=== PATIENT | female | born 1955 | race African-American/Black ===

== ENCOUNTER 2019-10-29 09:01 | Observation (INO) | payer OTHER, SELFPAY ==
[2019-10-29] VITALS (9 sets, daily range): BP systolic 91–127; BP diastolic 43–63; PULSE 76–92; RESP 16–24; TEMP 36.4–37.3; O2SAT 87–95
--- NOTE | ~2019-10-29 | CT_ITS ---
EXAMINATION: CT brain wo con DATE: 10/29/2019 12:58 INDICATION: Weakness TECHNIQUE: Computed tomography (CT) of the head was performed without intravenous contrast. Sagittal and coronal reconstructions were performed. The mA was adjusted according to patient size. Iterative reconstruction technique was employed. The dose-length product was 605.33 mGy-cm. COMPARISON: none FINDINGS: No acute intracranial hemorrhage, acute infarction or abnormal extra axial fluid collection. Ventricl es are normal and symmetric. There is moderate scattered white matter hypoattenuation consistent with chronic small vessel ischemic disease. Dystrophic calcifications at the bilateral basal ganglia. No mass/mass effect. Numerous lytic bone lesions throughout the skull, The largest occupying a signific ant portion of the clivus. A lesion in the anterior left frontal bone erodes through both the inner a nd outer tables of the calvarium as well as into the right frontal sinus. The orbits and mastoid air cells are normal. Mucus retention cyst in the left maxillary sinus. Additional lytic lesions eroding the cortices at the bilateral mandibular condyles. IMPRESSION: 1. No acute intracranial process. 2. Age related changes including moderate scattered white matter disease consistent with chronic smal l vessel ischemic disease. 3. Numerous lytic bone lesions concerning for malignancy with differential including multiple myeloma , metastatic disease and lymphoma. Reviewed, dictated and finalized at location A. IMPRESSION: 1. No acute intracranial process. 2. Age related changes including moderate scattered white matter disease consis tent with chronic small vessel ischemic disease. 3. Numerous lytic bone lesions concerning for malignancy with differential incl uding multiple myeloma, metastatic disease and lymphoma.
--- NOTE | ~2019-10-29 | XR_ITS ---
EXAMINATION: XR shoulder RT min 2V INDICATION: Right arm pain, history of myeloma TECHNIQUE: Three views of the right shoulder are submitted. COMPARISON: None FINDINGS: There is a minimally displaced surgical neck fracture of the right proximal humerus. There are innumerable lytic lesions involving the humerus, scapula, and right clavicle, consistent with his tory of multiple myeloma. IMPRESSION: 1. Minimally displaced surgical neck fracture of the right humerus. 2. Findings consistent with multiple myeloma. Reviewed, dictated and finalized at location A.
--- NOTE | 2019-10-29 09:24 | ED.GENADULT ---
HPI - General Adult General Chief complaint: Weakness Stated complaint: Weakness Time Seen by Provider: 10/29/19 09:04 Source: patient and family Mode of arrival: ambulatory Limitations: no limitations History of Present Illness HPI narrative: Patient is a 63-year-old female with a history of multiple myeloma following Dr. Najera who presents for evaluation of weakness. Patient reports she has been mostly bedbound over the past week. She has had decreased oral intake without nausea, vomiting or abdominal pain. She denies any specific pain, just states she feels very weak. She denies any numbness. Patient's states he has been unable to care for her, stating that she has just difficulty with all of her activities of daily living. Perhaps at this time, he believes home would not be the best location for her. Patient denies any urinary symptoms. No numbness. No headache. She reports her mouth feels dry. She denies any diarrhea. Related Data Home Medications Medication Instructions Recorded Confirmed amlodipine [Norvasc] 10 mg PO DAILY 07/02/19 07/25/19 metoprolol tartrate [Lopressor] 50 mg PO BID 07/02/19 07/25/19 oxycodone [Roxicodone] 5 mg PO Q4-6H 07/02/19 07/25/19 Allergies Allergy/AdvReac Type Severity Reaction Status Date / Time acetaminophen [From Tylenol] AdvReac Dizziness Verified 07/02/19 08:30 Review of Systems Review of Systems: Narrative: CONSTITUTIONAL: Denies fever, chills, or sweats. EYES: Denies visual changes ENT: Denies rhinorrhea, congestion, sore throat, or otalgia. CARDIOVASCULAR: Denies chest pain, palpitations, or edema. RESPIRATORY: Denies cough or dyspnea. GASTROINTESTINAL: Denies abdominal pain, nausea, vomiting, or diarrhea. GENITOURINARY: Denies dysuria or hematuria. SKIN: Denies rash or itching. MUSCULOSKELETAL: Denies new back pain, joint pain, or myalgia. NEUROLOGIC: Denies headache, numbness, reports diffuse weakness PMFSH Past Medical History Medical History Confusion Hypertension Multiple myeloma Surgical History Surgical History Cataract extraction status of left eye Family History Family History Father Malignant neoplasm of prostate Hypertension Mother Hypertension Sibling Drug overdose Other Unknown family medical history Social History Social History Social History: Her is her poa and she is a full code. She has no children. 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 Smoking status: Never smoker Second hand tobacco smoke exposure: Yes (sometimes family smokes) Alcohol intake: current Drinks per week: 1 Substance use: never Additional living arrangements comments: her Gender identity (if verbalized by the patient): Female Spiritual care concerns: No Agree to blood products: Yes Exam Narrative: Exam Narrative: GENERAL: Awake, alert, conversant HEAD: Normocephalic, atraumatic. EYES: PERRLA and EOMI. ENT: Nares clear, no rhinorrhea or epistaxis. Mucous membranes dry NECK: Supple. CHEST: No respiratory distress, breathing even and non labored HEART: Regular rate, sinus rhythm ABDOMEN:Non distended, non tender EXTREMITIES: Normal range of motion. No edema. SKIN: Warm, dry, no rash. NEURO:No focal deficits. Alert and oriented x3. Finger to nose intact bilaterally. EOMs intact without nystagmus. No facial droop/asymmetry noted bilaterally. Grimace intact. Intact sensation in face. Hearing intact bilaterally. Shoulder shrug intact. Strength 5/5 bilateral upper extremities. Strength 5/5 bilateral lower extremities. Reflexes 2+ patellar. Heel to christiansen intact bilaterally, somewhat slowed. Ambulatory exam deferred. Course Course Emergency Course: Patient presents to the emergency department for evaluation of di
--- NOTE | 2019-10-29 09:25 | ECG_ITS ---
Measurements Intervals [place] Rate: 83 P: 65 DE: 148 QRS: 56 QRSD: 84 T: 72 QT: 343 QTc: 404 Interpretive Statements SINUS RHYTHM BORDERLINE T WAVE ABNORMALITY- ANTERIOR LEADS BASELINE WANDER- I, II, AVR, AVL, AVF BORDERLINE ECG Electronically Signed On 10-29-2019 10:57:40 CDT by Jose Aguirre D.O.
[2019-10-29 09:51] LABS: Basophils Percent Auto 0.3 % (0.2-1.2); Eosinophils Percent Auto 0.4 % (0-4.4); Hematocrit 25.1 % (37.0-47.0); Hemoglobin 7.6 g/dL (12.0-15.0); Immature Granulocyte Absolute 0.16 K/mm3 (0.00-0.031); Immature Granulocyte Percent A 2.1 % (0-0.5); Lymphocytes Absolute Auto 1.15 K/mm3 (0.9-3.2); Mean Corpuscular HGB Conc 30.3 g/dl (32-36); Mean Corpuscular Hemoglobin 31.7 pg (26-34); Mean Corpuscular Volume 104.6 fl (80-100); Mean Platelet Volume 9.5 fl (7.4-10.4); Monocytes Absolute Auto 0.7 K/mm3 (0.1-0.6); Neutrophils Absolute Auto 5.6 K/mm3 (1.3-6.7); Neutrophils Percent Auto 73.2 % (45.5-73.1); Nucleated Red Blood Cells Absolute Auto 0.1 K/mm3 (0.0-0.012); Nucleated Red Blood Cells Perc 0.7 % (0.0-0.2); Platelet Count Result 321 k/mm3 (150-375); Red Cell Distribution Width 19.9 % (11.5-14.5); White Blood Count 7.7 K/mm3 (4.5-10.0)
[2019-10-29] MEDS: SODIUM CHLORIDE 0.9% IV 1,000 ML 999 ML (10:00)
[2019-10-29 10:08] LABS: Alanine Aminotransferase 7 U/L (4-35); Albumin Level 3.2 g/dL (3.5-5.1); Alkaline Phosphatase 97 U/L (38-126); Aspartate Amino Transferase 60 U/L (14-36); Bilirubin,Total 0.7 mg/dL (0.2-1.3); Blood Urea Nitrogen 25 mg/dL (7-17); Calcium 11.3 mg/dL (8.4-10.2); Carbon Dioxide 25 mmol/L (22-30); Chloride 105 mmol/L (98-107); Estimated Glomerular Filt Rate 29; Glucose 133 mg/dL (65-105); Sodium 136 mmol/L (137-145)
[2019-10-29 10:45] LABS: Add Urine Microscopic? YES; Appearance Urine Clear (Clear); Bacteria Urine Trace /hpf; Bilirubin Urine Negative (Negative); Blood Urine 3+ (Negative); Color Urine Yellow (Yellow); Glucose Urine UA Negative (Negative); Ketones Urine Negative (Negative); Leukocyte Esterase Ur Negative LEU/UL (Negative); Mucus Urine Rare /lpf; Nitrate Urine Negative (Negative); Protein Urine Negative (Negative); RBC Urine 0-2 /hpf (0-2); Specific Grav Ur 1.019 (1.001-1.035); Squamous Epithelial Cell Urine Rare /hpf (Few); Urobilinogen Urine Negative mg/dL (<2.0); WBC Urine 0-3 /hpf
--- NOTE | 2019-10-29 13:40 | ADMGEN ---
This patient, Queen Jean Claude Larson, was admitted to 2 Medical Room 253-01. Patient/family oriented to hospital policies and general routines including ID bracelet, bed and alarms, visiting hours, pain management, procedures, bathroom and other care routines, personal items, smoking policy, room service/diet, and visiting hours. Valuables list has been completed. Information on how to activate the Rapid Response Team has been discussed. Patient/Family are encouraged to report perceived risks to care and to ask questions if they do not understand what they are told or what they should do.
--- NOTE | 2019-10-29 15:08 | PCPTNOTE ---
pt refused PT evauation; stated she had shoulder pain and could not get out of bed; discussed with her that weakness and need to get OOB; she continued to refuse; discussed pt with MADDIE Dickey and SONDRA Arnett
--- NOTE | 2019-10-29 16:53 | PM.IMHP ---
H&P: HPI History of Present Illness Chief complaint: dehydration,shelia Narrative: Queen Jean Claude Larson is a 63 year old female who was diagnosed with multiple myeloma around 2015. She tried chemotherapy and developed peripheral neuropathy from. Both her hands and feet remain a bit numb since then. Q other than steroids she has taken no further chemotherapy since then. Recently she began to have severe pain left humerus deep aching pain. Found to have pathological fracture. Completed radiation therapy on September 27 with relief of pain. However the last 2 weeks she has become more weak. She hardly gets out of bed. Her has to help her out of bed. She requires help with all ADLs including set up for feeding and assistance to the bathroom. She is continent of bowel and bladder as long as she can get to the bathroom on time. That has become more of an effort. She has decreased appetite and weight loss. No nausea or vomiting. Over the past 1 week her right shoulder has begun hurting. Is and also a deep aching pain. Worse with any movement of the arm. This began about a week ago after her was out of the house for 6-7 hours and she was lying on the right side for that entire time. She denied any increased numbness in the right arm. No trouble with speech or swallowing. No visual or auditory symptoms. No dizziness or vertigo. She denied abdominal pain nausea or vomiting. She denied constipation or diarrhea. She denied fevers chills sweats cough congestion recent travel exposure to ill individuals. She notes that medications tendon discrete with her. She cannot take Tylenol as it makes her loopy. She usually takes 1/2 of a baby aspirin when she has pain. Hx was obtained from review of records, face to face interview with patient, and phone interview with house. Review of Systems Review of Systems: All systems reviewed & are unremarkable except as noted in HPI and below PMFSH Surgical History Surgical History Cataract extraction status of left eye Family History Family History (Updated 10/29/19 @ 17:27 by Alcon Gordillo MD) Father Malignant neoplasm of prostate Hypertension Alcoholism Mother Hypertension Cerebrovascular accident Sibling Drug overdose Other Unknown family medical history Social History Social History (Updated 10/29/19 @ 17:30 by Alcon Gordillo MD) Social History: Spouse is POA. No children. 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 Smoking status: Never smoker Second hand tobacco smoke exposure: Yes (sometimes family smokes) Alcohol intake: current Drinks per week: 1 Alcohol use details: Wine or gin Substance use: never Substance use type: does not use Other substance usage details: Tried marijuana as young adult without adverse effects. Living arrangements: with family Additional living arrangements comments: spouse Gender identity (if verbalized by the patient): Female Spiritual care concerns: No Agree to blood products: Yes Meds Home Medications and Allergies Home Medications Medication Instructions Recorded Confirmed Type amlodipine [Norvasc] 10 mg PO DAILY 07/02/19 10/29/19 History metoprolol tartrate [Lopressor] 50 mg PO BID 07/02/19 10/29/19 History bisacodyl [Dulcolax (bisacodyl)] 10 mg NC DAILY PRN 10/29/19 10/29/19 History simethicone 125 mg PO DAILY PRN 10/29/19 10/29/19 History Allergies Allergy/AdvReac Type Severity Reaction Status Date / Time acetaminophen [From Tylenol] AdvReac Dizziness Verified 07/02/19 08:30 Vital Signs Vital Signs - 24 hr 10/29/19 09:05 10/29/19 10:00 10/29/19 11:00 Temperature 99.1 F Pulse Rate 92 81 76 Respiratory Rate 16 20 24 H Blood Pressure 91/54 L 127/63 107/60 Pulse Oximetry 95 92 90 10/29/19 12:00 10/29/19 13:20 Temperature Pulse Rate 76 76 Respiratory Rate 18 16 Blood Pressure 103/55 L 107/60
[2019-10-29] MEDS: SODIUM CHLORIDE 0.9% IV 1,000 ML 70 ML IV CONT (17:31)
--- NOTE | 2019-10-29 17:37 | PM.CNNEP ---
Assessment and Plan Additional Plan 1. The patient has chronic kidney disease. Her GFR runs in the low 30s and so she has stage III CKD. Most likely this is due to hypertension. There is a small likelihood of myeloma kidney but since her disease is not progressive I doubt that this is the case. 2. The patient has acute kidney injury. This is most likely due to dehydration. She has not been eating and drinking very well at all. Her urinalysis shows some blood. This has been present before. She should probably see a urologist. We will get urine electrolytes and eosinophils. We will check an ultrasound of the kidneys as well. She is getting IV fluids. 3. The patient has multiple myeloma. She is getting radiation therapy for this. It does not look like she is on any oral medications for this. 4. She has hypertension. Her blood pressure is a little bit on the low side. Her amlodipine and metoprolol are on hold. 5. She has anemia. We will check iron levels, reticulocyte count, and give her some Epogen. 6. She has hypercalcemia. It is likely that she has somewhat high calcium turn over due to her myeloma. At the end of last hospital stay, her calcium levels were okay. I believe her calcium level is high now due to the dehydration. We will see how these levels do just with her hydration. History of Present Illness Reason for Consult Consult date: 10/29/19 Chief Complaint Chief complaint: dehydration,shelia History of Present Illness Narrative: Ms Larson is a very pleasant lady who has multiple medical problems including chronic kidney disease with a baseline creatinine of around 1.5. She also has active multiple myeloma and is getting therapy by . It is unclear exactly what therapy she is getting, however. She also has hypertension. She is a poor historian. Last June she came in the hospital with weakness and had a creatinine of over 5.0. The differential diagnosis mainly included dehydration or myeloma kidney. However as the weeks went on while she was in the hospital, her creatinine improved without any chemotherapy and she was discharged with a creatinine of around 1.4. There are no old labs in between that value on July 14 and this value today of 2.1. She says that for about the last week she has been tired and staying in bed. She meant since that she laid on 1 side for 7 hours. She says she has been eating but not great. She just nipple that her dinner tonight. She has not been drinking very much fluid either. She has been making some urine. She denies any chest pain, shortness of breath, cough, fever, skin rash. She is not taking any [id number] medications. Review of Systems Constitutional: Constitutional: Reports no additional constitutional complaints Eyes: Eyes: Reports no additional eye complaints ENT: Reports system reviewed and no additional complaints, except as documented Cardiovascular: Cardiovascular: Reports no additional cardiovascular complaints Respiratory: Respiratory: Reports no additional respiratory complaints Gastrointestinal: Gastrointestinal: Reports no additional gastrointestinal complaints Genitourinary: Genitourinary: Reports no additional female genitourinary complaints Musculoskeletal: Musculoskeletal: Reports no additional musculoskeletal complaints Integumentary/Breasts: Skin/Breast: Reports system reviewed and no additional complaints, except as docu Neurologic: Reports system reviewed and no additional complaints, except as documented Psychiatric: Psychiatric: Reports no additional psychiatric complaints PMFSH Past Medical History Medical History Hypertension Multiple myeloma Surgical History Surgical History Cataract extraction status of left eye Family History Family History
[2019-10-29] MEDS: EPOETIN ALFA 20,000 UNITS/ML VIAL 20000 UNITS SUB-Q (18:47)
[2019-10-29] MEDS: DEXAMETHASONE SOD PHOS INJ 4 MG/ML VIAL IV PUSH (19:27)
[2019-10-29 20:47] LABS: Parathyroid Intact 4.7 pg/mL (7.5-53.5)
[2019-10-29 21:03] LABS: Iron 66 ug/dL (37-170)
[2019-10-29 21:12] LABS: Percent Iron Saturation 36 % (20-50)
[2019-10-30 05:55] VITALS: BP 111/52; PULSE 95; RESP 20; TEMP 36.9; O2SAT 92
--- NOTE | 2019-10-30 07:42 | PM.PNNEP ---
Progress Note: A&P Assessment and Plan (1) CKD (chronic kidney disease): Qualifiers: Chronic kidney disease stage: stage 3 (moderate) Qualified Code(s): N18.3 - Chronic kidney disease, stage 3 (moderate) Code(s): N18.9 - Chronic kidney disease, unspecified Status: Acute Assessment and Plan: The patient has chronic kidney disease. Her GFR runs in the low 30s and so she has stage III CKD. Most likely this is due to hypertension. There is a small likelihood of myeloma kidney but since her disease is not progressive I doubt that this is the case. (2) SUPA (acute kidney injury): Code(s): N17.9 - Acute kidney failure, unspecified Status: Acute Assessment and Plan: Patient is making some urine. Her labs are pending today. (3) Multiple myeloma: Qualifiers: Multiple myeloma remission status: not in remission Qualified Code(s): C90.00 - Multiple myeloma not having achieved remission Code(s): C90.00 - Multiple myeloma not having achieved remission Status: Chronic Assessment and Plan: She is being managed by Dr. Najera as an outpatient. (4) Hypertension: Qualifiers: Hypertension type: essential hypertension Qualified Code(s): I10 - Essential (primary) hypertension Code(s): I10 - Essential (primary) hypertension Status: Chronic Assessment and Plan: Her blood pressure is well controlled (5) Anemia: Qualifiers: Anemia type: other cause Other causes of anemia: other cause, not classified Qualified Code(s): D64.89 - Other specified anemias Code(s): D64.9 - Anemia, unspecified Status: Acute Assessment and Plan: Her hemoglobin is low. She is on EPO. Retake and iron levels as well as B12 and folate are all pending (6) Hypercalcemia: Code(s): E83.52 - Hypercalcemia Status: Acute Assessment and Plan: Today's calcium level is pending. Probably due to the myeloma plus dehydration. It may improve with hydration alone. Consider a bisphosphonate for this when the renal function recover Subjective Date/time seen: 10/30/19 07:42 Interval history: is feeling okay today. Not quite as weak as yesterday. She ate some supper yesterday. She does not feel like eating breakfast. She never does. Review of Systems Cardiovascular: Cardiovascular: Reports no additional cardiovascular complaints Respiratory: Respiratory: Reports no additional respiratory complaints Gastrointestinal: Gastrointestinal: Reports no additional gastrointestinal complaints Genitourinary: Genitourinary: Reports no additional female genitourinary complaints Exam Narrative: Exam Narrative: Well developed well-nourished in no acute distress Lungs clear Heart regular without rub Abdomen bowel sounds positive soft nontender Extremities no edema Skin no rash Objective Data Vital Signs Vital Signs: Vital Signs - 24 hr 10/29/19 09:05 10/29/19 10:00 10/29/19 11:00 Temperature 37.3 C Pulse Rate 92 81 76 Respiratory Rate 16 20 24 H Blood Pressure 91/54 L 127/63 107/60 Pulse Oximetry 95 92 90 10/29/19 12:00 10/29/19 13:20 10/29/19 14:00 Temperature 36.6 C Pulse Rate 76 76 81 Respiratory Rate 18 16 16 Blood Pressure 103/55 L 107/60 93/43 L Pulse Oximetry 92 92 91 10/29/19 20:14 10/29/19 20:58 10/29/19 22:00 Temperature 36.4 C Pulse Rate 82 Respiratory Rate 20 Blood Pressure 101/49 L Pulse Oximetry 87 L 92 93 10/30/19 05:55 Temperature 36.9 C Pulse Rate 95 Respiratory Rate 20 Blood Pressure 111/52 L Pulse Oximetry 92 Intake/Output Intake/Output: Intake & Output 10/27/19 10/28/19 10/29/19 10/30/19 23:59 23:59 23:59 23:59 Intake Total 1320 520 Output Total 100 Balance 1320 420 Meds/Results Medications: Active Medications Generic Name Dose Route Start Last Admin Trade Name Freq PRN Reason Stop Dose Admin Amlodipine Be
[2019-10-30] MEDS: DEXAMETHASONE 4 MG TABLET PO (07:54)
[2019-10-30 08:10] LABS: Hematocrit 23.2 % (37.0-47.0); Immature Granulocyte Absolute 0.11 K/mm3 (0.00-0.031); Immature Granulocyte Percent A 1.5 % (0-0.5); Immature Reticulocyte Fraction 36.6 % (3.0-15.9); Lymphocytes Absolute Auto 0.76 K/mm3 (0.9-3.2); Lymphocytes Percent Auto 10.5 % (18.3-44.2); Mean Corpuscular HGB Conc 29.7 g/dl (32-36); Mean Corpuscular Hemoglobin 31.2 pg (26-34); Mean Platelet Volume 9.4 fl (7.4-10.4); Monocytes Absolute Auto 0.3 K/mm3 (0.1-0.6); Monocytes Percent Auto 3.4 % (2.6-8.5); Neutrophils Absolute Auto 6.1 K/mm3 (1.3-6.7); Neutrophils Percent Auto 84.6 % (45.5-73.1); Nucleated Red Blood Cells Perc 0.4 % (0.0-0.2); Platelet Count Result 283 k/mm3 (150-375); Red Blood Count 2.21 M/mm3 (4.2-5.4); Red Cell Distribution Width 19.7 % (11.5-14.5); Reticulocyte Hemoglobin Conten 33.9 pg (28.2-35.7); Reticulocyte Percent 4.43 % (0.7-4.3); White Blood Count 7.3 K/mm3 (4.5-10.0)
[2019-10-30 08:17] LABS: Blood Urea Nitrogen 29 mg/dL (7-17); Calcium 10.1 mg/dL (8.4-10.2); Carbon Dioxide 20 mmol/L (22-30); Chloride 108 mmol/L (98-107); Estimated Glomerular Filt Rate 29; Glucose 129 mg/dL (65-105); Phosphorus 4.2 mg/dL (2.5-4.5); Potassium 4.5 mmol/L (3.4-5.0); Sodium 133 mmol/L (137-145)
[2019-10-30 08:42] LABS: Hemoglobin 6.9 g/dL (12.0-15.0); Hypochromasia 1+ (NORMAL); Platelet Estimate Adequate (Adequate)
[2019-10-30 08:43] LABS: Macrocytosis 2+ (NORMAL)
[2019-10-30 08:46] LABS: Iron 69 ug/dL (37-170)
[2019-10-30 09:00] LABS: Parathyroid Intact 4.7 pg/mL (7.5-53.5)
[2019-10-30 09:27] LABS: Percent Iron Saturation 39 % (20-50)
--- NOTE | 2019-10-30 11:29 | PCPTNOTE ---
Physical therapy attempted to evaluate patient this morning, however patient consistently refused to participate in therapy evaluation despite therapist's max encouragement and education of importance of improving functional mobility etc. Patient reported that she is unable to move and is not interested in therapy at this time. Therapist spoke with patient's RN and therapy will re-attempt tomorrow and will discharge the patient from therapy services if the patient continues to refuse. Geetha Bynum, PT, DPT
[2019-10-30 13:37] VITALS: O2SAT 92
[2019-10-30 14:00] VITALS: BP 122/66; PULSE 103; RESP 18; TEMP 36.1; O2SAT 96
--- NOTE | 2019-10-30 15:33 | P.PNIM_ITS ---
Progress Note: A&P Assessment and Plan (1) Acute dehydration: Code(s): E86.0 - Dehydration Status: Acute Assessment and Plan: * Likely due to poor oral intake caused by increased pain and immobility and progression of her underlying multiple myeloma * IV fluid continue * Monitor labs and clinical response (2) SUPA (acute kidney injury): Code(s): N17.9 - Acute kidney failure, unspecified Status: Acute Assessment and Plan: * Likely due to underlying multiple myeloma and dehydration due to poor oral intake * Monitor renal function with hydration * Creatinine still 2.1 today (3) Multiple myeloma: Qualifiers: Multiple myeloma remission status: not in remission Qualified Code(s): C90.00 - Multiple myeloma not having achieved remission Code(s): C90.00 - Multiple myeloma not having achieved remission Status: Chronic Assessment and Plan: * Diagnosed in 2005 * She has done quite well with minimal intervention * At this point because of increased pain, decreased appetite, and decreased functional capacity she wishes to pursue palliative care * Male with hospice this a.m. and will proceed * Awaiting placement in a correction with hospice (4) Anemia: Qualifiers: Anemia type: other cause Other causes of anemia: other cause, not classified Qualified Code(s): D64.89 - Other specified anemias Code(s): D64.9 - Anemia, unspecified Status: Acute Assessment and Plan: * Likely due to her underlying multiple myeloma and chronic kidney disease. * Creatinine is 6.9 today but will hold on transfusion with the chronicity and the fact she is now entering hospice (5) Hypertension: Qualifiers: Hypertension type: essential hypertension Qualified Code(s): I10 - Essential (primary) hypertension Code(s): I10 - Essential (primary) hypertension Status: Chronic Assessment and Plan: * Held metoprolol and amlodipine initially due to hypotension. BP rebounding slightly so will restart metoprolol and continue to hold amlodipine (6) Hypercalcemia: Code(s): E83.52 - Hypercalcemia Status: Acute Assessment and Plan: * May be elevated at this point due to dehydration * And decreased to 10.1 with hydration (7) Right shoulder pain: Qualifiers: Chronicity: acute Qualified Code(s): M25.511 - Pain in right shoulder Code(s): M25.511 - Pain in right shoulder Status: Acute Assessment and Plan: * X-ray right shoulder fracture probable pathologic * Oxycodone 2.5 mg p.r.n. * If metastatic lesion is present then, in addition to steroids and narcotics, zoledronic acid 4 mg IV may mitigate symptoms if versus (8) CKD (chronic kidney disease): Qualifiers: Chronic kidney disease stage: stage 3 (moderate) Qualified Code(s): N18.3 - Chronic kidney disease, stage 3 (moderate) Code(s): N18.9 - Chronic kidney disease, unspecified Status: Acute Assessment and Plan: * Baseline creatinine was 1.4 on July 14, 2019, now acute on chronic kidney disease Subjective Date/time seen: 10/30/19 15:33 Interval history: Date of visit 10/29. is feeling okay today other than neuropathy type symptoms and pain in her right shoulder. Not quite as weak as yesterday. She is eating better slowly. Did not work with therapy today and discussing continued care with hospice Exam Narrative: Exam Narrative: Blood pressure 22/66
--- NOTE | 2019-10-30 15:33 | PM.IMPN ---
Progress Note: A&P Assessment and Plan (1) Acute dehydration: Code(s): E86.0 - Dehydration Status: Acute Assessment and Plan: Likely due to poor oral intake caused by increased pain and immobility and progression of her underlying multiple myeloma IV fluid continue Monitor labs and clinical response (2) SUPA (acute kidney injury): Code(s): N17.9 - Acute kidney failure, unspecified Status: Acute Assessment and Plan: Likely due to underlying multiple myeloma and dehydration due to poor oral intake Monitor renal function with hydration Creatinine still 2.1 today (3) Multiple myeloma: Qualifiers: Multiple myeloma remission status: not in remission Qualified Code(s): C90.00 - Multiple myeloma not having achieved remission Code(s): C90.00 - Multiple myeloma not having achieved remission Status: Chronic Assessment and Plan: Diagnosed in 2005 She has done quite well with minimal intervention At this point because of increased pain, decreased appetite, and decreased functional capacity she wishes to pursue palliative care Male with hospice this a.m. and will proceed Awaiting placement in a half-way with hospice (4) Anemia: Qualifiers: Anemia type: other cause Other causes of anemia: other cause, not classified Qualified Code(s): D64.89 - Other specified anemias Code(s): D64.9 - Anemia, unspecified Status: Acute Assessment and Plan: Likely due to her underlying multiple myeloma and chronic kidney disease. Creatinine is 6.9 today but will hold on transfusion with the chronicity and the fact she is now entering hospice (5) Hypertension: Qualifiers: Hypertension type: essential hypertension Qualified Code(s): I10 - Essential (primary) hypertension Code(s): I10 - Essential (primary) hypertension Status: Chronic Assessment and Plan: Held metoprolol and amlodipine initially due to hypotension. BP rebounding slightly so will restart metoprolol and continue to hold amlodipine (6) Hypercalcemia: Code(s): E83.52 - Hypercalcemia Status: Acute Assessment and Plan: May be elevated at this point due to dehydration And decreased to 10.1 with hydration (7) Right shoulder pain: Qualifiers: Chronicity: acute Qualified Code(s): M25.511 - Pain in right shoulder Code(s): M25.511 - Pain in right shoulder Status: Acute Assessment and Plan: X-ray right shoulder fracture probable pathologic Oxycodone 2.5 mg p.r.n. If metastatic lesion is present then, in addition to steroids and narcotics, zoledronic acid 4 mg IV may mitigate symptoms if versus (8) CKD (chronic kidney disease): Qualifiers: Chronic kidney disease stage: stage 3 (moderate) Qualified Code(s): N18.3 - Chronic kidney disease, stage 3 (moderate) Code(s): N18.9 - Chronic kidney disease, unspecified Status: Acute Assessment and Plan: Baseline creatinine was 1.4 on July 14, 2019, now acute on chronic kidney disease Subjective Date/time seen: 10/30/19 15:33 Interval history: Date of visit 10/29. is feeling okay today other than neuropathy type symptoms and pain in her right shoulder. Not quite as weak as yesterday. She is eating better slowly. Did not work with therapy today and discussing continued care with hospice Exam Narrative: Exam Narrative: Blood pressure 22/66 pulse is 100 saturating 6% 1-2 L HEENT: , PERRL, sclerae nonicteric, NECK: No JVD, adenopathy, or thyromegaly CHEST: Clear to auscultation. Normal effort. HEART: NL S1/S2, regular, no murmur ABDOMEN: BS+, soft, nontender, no mass, EXTREMITIES: No , edema, or clubbing NEUROLOGIC: CN intact with no acute focal changes MUSCULOSKELETAL:. Right shoulder tender to palpation with decreased ROM due to pain and weakness PSYCH: Alert. Oriented to person, place, an
[2019-10-30] MEDS: SODIUM CHLORIDE 0.9% IV 1,000 ML 70 ML IV CONT (16:50)
[2019-10-30] MEDS: BISACODYL 10 MG SUPPOSITORY RECTAL (16:51)
[2019-10-30 17:34] VITALS: BMI 25.0
--- NOTE | 2019-10-30 20:06 | CONS_ITS ---
DATE OF CONSULTATION: 10/30/2019 REASON FOR CONSULTATION: Multiple myeloma. HISTORY OF PRESENTING ILLNESS: This is a 63-year-old female who is a poor historian and has a history of multiple myeloma diagnosed in 2015 and was treated by Dr. Trejo. She received chemotherapy and that was subsequently discontinued due to development of peripheral neuropathy. She was seen by back in June 2019 for multiple myeloma. She did not keep followup appointment with our office. She was also seen by Dr. Brenda Najera for palliative radiation therapy to the left shoulder, which she completed in August 2019. The patient now came into the hospital with development of acute renal failure and profound anemia. She has been complaining of right shoulder pain. Complained of tiredness and fatigue. Denies any abdominal pain, nausea and vomiting. REVIEW OF SYSTEMS: 12-point review of system was reviewed and as per HPI, otherwise negative. PAST MEDICAL HISTORY: Multiple myeloma diagnosed in 1998, status post radiation therapy treatment completed in August 2019, hypertension. PAST SURGICAL HISTORY: Left eye cataract surgery. FAMILY HISTORY: Father had prostate cancer. Mother had stroke. SOCIAL HISTORY: Denies any history of smoking, drinks weekly. HOME MEDICATIONS: Reviewed. ALLERGIES: REVIEWED. PHYSICAL EXAMINATION: GENERAL: This patient is a well-developed, well-nourished, female, no apparent distress. VITAL SIGNS: Per nursing note. HEENT: Normocephalic, atraumatic. Clear oropharynx. LUNGS: Clear to auscultation bilaterally. CARDIOVASCULAR: Regular rate and rhythm. No murmurs. ABDOMEN: Soft, nontender, nondistended. Bowel sounds are positive in all 4 quadrants. No hepatosplenomegaly. EXTREMITIES: No edema. NEUROLOGIC: Exam grossly intact. LABORATORY DATA: WBC 7.3, hemoglobin 6.9, MCV 105, platelets 283,000, 1.5% immature granulocyte, 85% neutrophils, lymphocytes 10.5%. Creatinine 2.1, iron 69, iron saturation 39%, ferritin 270, total bilirubin 0.7. Vitamin B12 level is pending. ASSESSMENT AND PLAN: 1. Multiple myeloma. The patient is a poor historian. According to the chart review, she was diagnosed in 2015 and received treatment [address] Dr[address] Trejo. Treatment was discontinued due to development of peripheral neuropathy. According to her, her last treatment was more than a year ago. She also received radiation therapy treatment by Dr. Najera to the left proximal humerus and completed on August 20, 2019. Looks like her myeloma has not been managed recently. Her anemia could very well be secondary to multiple myeloma. Iron studies came back normal. B12 is pending. She could also have anemia of chronic kidney disease secondary to multiple myeloma. At this time, I will order serum protein electrophoresis with immunofixation studies. I will check serum free light chain studies and quantitative immunoglobulins. We would like to see her in the office after review of her previous myeloma therapy treatment. I would also suggest starting Procrit injection for her anemia of chronic kidney disease. 2. Chronic kidney, stage 3, disease. Dr. Noble is following the patient. I would like to thank you for allowing us to see this patient in consultation. MACIEL ESPINOZA M.D. DERMATOLOGY NURSE PRACTITIONER DERMATOLOGY NURSE PRACTITIONER D I MT: [place]
[2019-10-30] MEDS: SIMETHICONE 125 MG CHEW TAB PO (20:38)
[2019-10-30 21:09] VITALS: O2SAT 93
[2019-10-30 22:00] VITALS: BP 116/55; PULSE 82; RESP 20; TEMP 36.6; O2SAT 91
[2019-10-31] VITALS (7 sets, daily range): BP systolic 113–130; BP diastolic 50–70; PULSE 88–125; RESP 18–22; TEMP 36.2–36.7; O2SAT 90–92
[2019-10-31] MEDS: SIMETHICONE 125 MG CHEW TAB PO ×2 (04:54→17:35)
[2019-10-31 05:47] LABS: IFOB Positive Control Positive; Immunochemical Fecal Occult Bl Negative (N)
[2019-10-31] MEDS: SODIUM CHLORIDE 0.9% IV 1,000 ML 70 ML IV CONT (06:43)
[2019-10-31 07:29] LABS: Blood Urea Nitrogen 26 mg/dL (7-17); Calcium 9.6 mg/dL (8.4-10.2); Carbon Dioxide 21 mmol/L (22-30); Chloride 108 mmol/L (98-107); Estimated CRCL calculation 22 ml/min; Estimated Glomerular Filt Rate 34; Glucose 119 mg/dL (65-105); Phosphorus 3.4 mg/dL (2.5-4.5); Sodium 134 mmol/L (137-145)
--- NOTE | 2019-10-31 08:14 | PCPTNOTE ---
has refused PT x 2 and now has been placed on hospice. Will d/c from PT at this time.
[2019-10-31] MEDS: DEXAMETHASONE 4 MG TABLET PO (08:15)
--- NOTE | 2019-10-31 14:31 | PM.PNNEP ---
Progress Note: A&P Assessment and Plan (1) CKD (chronic kidney disease): Qualifiers: Chronic kidney disease stage: stage 3 (moderate) Qualified Code(s): N18.3 - Chronic kidney disease, stage 3 (moderate) Code(s): N18.9 - Chronic kidney disease, unspecified Status: Acute Assessment and Plan: The patient has chronic kidney disease. Her GFR runs in the low 30s and so she has stage III CKD. Most likely this is due to hypertension. (2) SUPA (acute kidney injury): Code(s): N17.9 - Acute kidney failure, unspecified Status: Acute Assessment and Plan: Patient is making some urine. Creatinine is stable but above her baseline. Continue IV fluids for now. (3) Multiple myeloma: Qualifiers: Multiple myeloma remission status: not in remission Qualified Code(s): C90.00 - Multiple myeloma not having achieved remission Code(s): C90.00 - Multiple myeloma not having achieved remission Status: Chronic Assessment and Plan: She is being managed by Dr. Najera as an outpatient. (4) Hypertension: Qualifiers: Hypertension type: essential hypertension Qualified Code(s): I10 - Essential (primary) hypertension Code(s): I10 - Essential (primary) hypertension Status: Chronic Assessment and Plan: Her blood pressure is well controlled (5) Anemia: Qualifiers: Anemia type: other cause Other causes of anemia: other cause, not classified Qualified Code(s): D64.89 - Other specified anemias Code(s): D64.9 - Anemia, unspecified Status: Acute Assessment and Plan: Her hemoglobin is low. She is on EPO. Reticulocyte count is doing pretty well. Iron levels are normal. B12 and folate were canceled? (6) Hypercalcemia: Code(s): E83.52 - Hypercalcemia Status: Acute Assessment and Plan: Today's calcium level is better, in the normal range. Additional Plan Subjective Date/time seen: 10/31/19 14:31 Interval history: is feeling okay today. Never eats very much breakfast. Not really eating a whole lot anyway. Review of Systems Cardiovascular: Cardiovascular: Reports no additional cardiovascular complaints Respiratory: Respiratory: Reports no additional respiratory complaints Gastrointestinal: Gastrointestinal: Reports no additional gastrointestinal complaints Genitourinary: Genitourinary: Reports no additional female genitourinary complaints Exam Narrative: Exam Narrative: Well developed well-nourished in no acute distress Lungs clear bilaterally Heart regular without rub Abdomen bowel sounds positive soft nontender Extremities no edema Skin no rash or subcu nodules Objective Data Vital Signs Vital Signs: Vital Signs - 24 hr 10/30/19 21:09 10/30/19 22:00 10/31/19 05:54 Temperature 36.6 C 36.3 C L Pulse Rate 82 94 Respiratory Rate 20 18 Blood Pressure 116/55 L 113/50 L Pulse Oximetry 93 91 91 10/31/19 08:30 Temperature Pulse Rate Respiratory Rate Blood Pressure Pulse Oximetry 90 Intake/Output Intake/Output: Intake & Output 10/28/19 10/29/19 10/30/19 10/31/19 23:59 23:59 23:59 23:59 Intake Total 1320 1930 1240 Output Total 250 100 Balance 1320 1680 1140 Meds/Results Medications: Active Medications Generic Name Dose Route Start Last Admin Trade Name Freq PRN Reason Stop Dose Admin Amlodipine Besylate 10 mg 10/30/19 09:00 Norvasc PO DAILY NIC[facility] Bisacodyl 10 mg 10/29/19 16:53 10/30/19 16:51 Dulcolax Suppository RECTAL 10 mg DAILY PRN Administration Constipation Dexamethasone 4 mg 10/30/19 08:00 10/31/19 08:15 Dexamethasone Po PO 4 mg DAILY@0800 [facility] Administration Epoetin [place] 20,000 units 10/29/19 17:50 10/29/19 18:47 Epogen SUB-Q 20,000 units MOWEFR NICOLA Administration Sodium Chloride 1,000 mls @ 70 mls/hr 10/29/19 16:55 10/31/19 06:43 Normal Saline Iv
--- NOTE | 2019-10-31 14:39 | P.PNIM_ITS ---
Progress Note: A&P Assessment and Plan (1) Acute dehydration: Code(s): E86.0 - Dehydration Status: Acute Assessment and Plan: * Likely due to poor oral intake caused by increased pain and immobility and progression of her underlying multiple myeloma * IV fluid continue * Monitor labs and clinical response (2) SUPA (acute kidney injury): Code(s): N17.9 - Acute kidney failure, unspecified Status: Acute Assessment and Plan: * Likely due to underlying multiple myeloma and dehydration due to poor oral intake * Monitor renal function with hydration * Creatinine down to 1.8 today (3) Multiple myeloma: Qualifiers: Multiple myeloma remission status: not in remission Qualified Code(s): C90.00 - Multiple myeloma not having achieved remission Code(s): C90.00 - Multiple myeloma not having achieved remission Status: Chronic Assessment and Plan: * Diagnosed in 2005 * She has done quite well with minimal intervention * At this point because of increased pain, decreased appetite, and decreased functional capacity she wishes to pursue palliative care * Met with hospice 10/29. and will proceed * Awaiting placement in a shelter with hospice (4) Anemia: Qualifiers: Anemia type: other cause Other causes of anemia: other cause, not classified Qualified Code(s): D64.89 - Other specified anemias Code(s): D64.9 - Anemia, unspecified Status: Acute Assessment and Plan: * Likely due to her underlying multiple myeloma and chronic kidney disease. * Creatinine is 6.9 10/29 but will hold on transfusion with the chronicity and the fact she is now entering hospice (5) Hypertension: Qualifiers: Hypertension type: essential hypertension Qualified Code(s): I10 - Essential (primary) hypertension Code(s): I10 - Essential (primary) hypertension Status: Chronic Assessment and Plan: * Held metoprolol and amlodipine initially due to hypotension. BP rebounding slightly so restarted metoprolol 10/29 and continue to hold amlodipine (6) Hypercalcemia: Code(s): E83.52 - Hypercalcemia Status: Acute Assessment and Plan: * May be elevated at this point due to dehydration * And decreased to 9.6 with hydration (7) Right shoulder pain: Qualifiers: Chronicity: acute Qualified Code(s): M25.511 - Pain in right shoulder Code(s): M25.511 - Pain in right shoulder Status: Acute Assessment and Plan: * X-ray right shoulder fracture probable pathologic * Oxycodone 2.5 mg p.r.n. * If metastatic lesion is present then, in addition to steroids and narcotics, zoledronic acid 4 mg IV may mitigate symptoms if versus . Already had radiation therapy to that shoulder. * Due to the multiple lytic lesions secondary to the multiple myeloma she is at increased risk for recurrent fractures (8) CKD (chronic kidney disease): Qualifiers: Chronic kidney disease stage: stage 3 (moderate) Qualified Code(s): N18.3 - Chronic kidney disease, stage 3 (moderate) Code(s): N18.9 - Chronic kidney disease, unspecified Status: Acute Assessment and Plan: * Baseline creatinine was 1.4 on July 14, 2019, now acute on chronic kidney disease and creatinine down to 1.8 today Subjective Date/time seen: 10/31/19 14:39 Interval history: Date of visit 10/30. is feeling okay today other than neuropathy type symptoms and pain in her right shoulder that is chronic. Not
--- NOTE | 2019-10-31 14:39 | PM.IMPN ---
Progress Note: A&P Assessment and Plan (1) Acute dehydration: Code(s): E86.0 - Dehydration Status: Acute Assessment and Plan: Likely due to poor oral intake caused by increased pain and immobility and progression of her underlying multiple myeloma IV fluid continue Monitor labs and clinical response (2) SUPA (acute kidney injury): Code(s): N17.9 - Acute kidney failure, unspecified Status: Acute Assessment and Plan: Likely due to underlying multiple myeloma and dehydration due to poor oral intake Monitor renal function with hydration Creatinine down to 1.8 today (3) Multiple myeloma: Qualifiers: Multiple myeloma remission status: not in remission Qualified Code(s): C90.00 - Multiple myeloma not having achieved remission Code(s): C90.00 - Multiple myeloma not having achieved remission Status: Chronic Assessment and Plan: Diagnosed in 2005 She has done quite well with minimal intervention At this point because of increased pain, decreased appetite, and decreased functional capacity she wishes to pursue palliative care Met with hospice 10/29. and will proceed Awaiting placement in a halfway with hospice (4) Anemia: Qualifiers: Anemia type: other cause Other causes of anemia: other cause, not classified Qualified Code(s): D64.89 - Other specified anemias Code(s): D64.9 - Anemia, unspecified Status: Acute Assessment and Plan: Likely due to her underlying multiple myeloma and chronic kidney disease. Creatinine is 6.9 10/29 but will hold on transfusion with the chronicity and the fact she is now entering hospice (5) Hypertension: Qualifiers: Hypertension type: essential hypertension Qualified Code(s): I10 - Essential (primary) hypertension Code(s): I10 - Essential (primary) hypertension Status: Chronic Assessment and Plan: Held metoprolol and amlodipine initially due to hypotension. BP rebounding slightly so restarted metoprolol 10/29 and continue to hold amlodipine (6) Hypercalcemia: Code(s): E83.52 - Hypercalcemia Status: Acute Assessment and Plan: May be elevated at this point due to dehydration And decreased to 9.6 with hydration (7) Right shoulder pain: Qualifiers: Chronicity: acute Qualified Code(s): M25.511 - Pain in right shoulder Code(s): M25.511 - Pain in right shoulder Status: Acute Assessment and Plan: X-ray right shoulder fracture probable pathologic Oxycodone 2.5 mg p.r.n. If metastatic lesion is present then, in addition to steroids and narcotics, zoledronic acid 4 mg IV may mitigate symptoms if versus . Already had radiation therapy to that shoulder. Due to the multiple lytic lesions secondary to the multiple myeloma she is at increased risk for recurrent fractures (8) CKD (chronic kidney disease): Qualifiers: Chronic kidney disease stage: stage 3 (moderate) Qualified Code(s): N18.3 - Chronic kidney disease, stage 3 (moderate) Code(s): N18.9 - Chronic kidney disease, unspecified Status: Acute Assessment and Plan: Baseline creatinine was 1.4 on July 14, 2019, now acute on chronic kidney disease and creatinine down to 1.8 today Subjective Date/time seen: 10/31/19 14:39 Interval history: Date of visit 10/30. is feeling okay today other than neuropathy type symptoms and pain in her right shoulder that is chronic. Not quite as weak as yesterday. She is eating better slowly. Has decided to enter hospice and waiting on placement. Exam Narrative: Exam Narrative: Blood pressure 116/54 pulse is 82 saturating 91% 1 L HEENT: , PERRL, sclerae nonicteric, NECK: No JVD, adenopathy, or thyromegaly CHEST: Clear to auscultation. Normal effort. HEART: NL S1/S2, regular, no murmur ABDOMEN: BS+, soft, nontender, no mass, EXTREMITIES: No , edema, or clu
[2019-10-31] MEDS: METOPROLOL TARTRATE 50 MG TAB PO (17:33)
[2019-10-31] MEDS: EPOETIN ALFA 20,000 UNITS/ML VIAL 20000 UNITS SUB-Q (17:35)
[2019-11-01 06:00] VITALS: BP 123/56; PULSE 80; RESP 16; TEMP 36; O2SAT 91
[2019-11-01 08:21] VITALS: PULSE 118
[2019-11-01] MEDS: DEXAMETHASONE 4 MG TABLET PO (08:21)
[2019-11-01] MEDS: METOPROLOL TARTRATE 50 MG TAB PO (08:21)
[2019-11-01 08:25] LABS: Basophils Percent Auto 0.1 % (0.2-1.2); Hematocrit 24.6 % (37.0-47.0); Hemoglobin 7.3 g/dL (12.0-15.0); Immature Granulocyte Absolute 0.19 K/mm3 (0.00-0.031); Immature Granulocyte Percent A 2.2 % (0-0.5); Lymphocytes Absolute Auto 1.06 K/mm3 (0.9-3.2); Lymphocytes Percent Auto 12.3 % (18.3-44.2); Mean Corpuscular HGB Conc 29.7 g/dl (32-36); Mean Corpuscular Hemoglobin 31.2 pg (26-34); Mean Corpuscular Volume 105.1 fl (80-100); Mean Platelet Volume 9.6 fl (7.4-10.4); Monocytes Absolute Auto 0.6 K/mm3 (0.1-0.6); Monocytes Percent Auto 6.5 % (2.6-8.5); Neutrophils Absolute Auto 6.8 K/mm3 (1.3-6.7); Neutrophils Percent Auto 78.9 % (45.5-73.1); Nucleated Red Blood Cells Absolute Auto 0.1 K/mm3 (0.0-0.012); Nucleated Red Blood Cells Perc 1.2 % (0.0-0.2); Platelet Count Result 292 k/mm3 (150-375); Red Blood Count 2.34 M/mm3 (4.2-5.4); Red Cell Distribution Width 20.1 % (11.5-14.5); White Blood Count 8.6 K/mm3 (4.5-10.0)
[2019-11-01 08:44] LABS: Blood Urea Nitrogen 25 mg/dL (7-17); Calcium 9.7 mg/dL (8.4-10.2); Carbon Dioxide 23 mmol/L (22-30); Chloride 109 mmol/L (98-107); Estimated CRCL calculation 35 ml/min; Estimated Glomerular Filt Rate > 60; Glucose 116 mg/dL (65-105); Phosphorus 2.8 mg/dL (2.5-4.5); Potassium 3.8 mmol/L (3.4-5.0); Sodium 134 mmol/L (137-145)
--- NOTE | 2019-11-01 10:23 | PM.PNNEP ---
Progress Note: A&P Assessment and Plan (1) CKD (chronic kidney disease): Qualifiers: Chronic kidney disease stage: stage 3 (moderate) Qualified Code(s): N18.3 - Chronic kidney disease, stage 3 (moderate) Code(s): N18.9 - Chronic kidney disease, unspecified Status: Acute Assessment and Plan: The patient has chronic kidney disease. Her GFR runs in the low 30s and so she has stage III CKD. Most likely this is due to hypertension. (2) SUPA (acute kidney injury): Code(s): N17.9 - Acute kidney failure, unspecified Status: Acute Assessment and Plan: Patient is making some urine. Creatinine is down to 1.1. (3) Multiple myeloma: Qualifiers: Multiple myeloma remission status: not in remission Qualified Code(s): C90.00 - Multiple myeloma not having achieved remission Code(s): C90.00 - Multiple myeloma not having achieved remission Status: Chronic Assessment and Plan: She is being managed by Dr. Najera as an outpatient. (4) Hypertension: Qualifiers: Hypertension type: essential hypertension Qualified Code(s): I10 - Essential (primary) hypertension Code(s): I10 - Essential (primary) hypertension Status: Chronic Assessment and Plan: Her blood pressure is well controlled She is off of her IV fluids and she is eating. (5) Anemia: Qualifiers: Anemia type: other cause Other causes of anemia: other cause, not classified Qualified Code(s): D64.89 - Other specified anemias Code(s): D64.9 - Anemia, unspecified Status: Acute Assessment and Plan: Her hemoglobin is low, bouncing around 7. She is on EPO. Reticulocyte count is doing pretty well. Iron levels are normal. B12 and folate were canceled? (6) Hypercalcemia: Code(s): E83.52 - Hypercalcemia Status: Acute Assessment and Plan: Today's calcium level is 9.7. Additional Plan Subjective Date/time seen: 11/01/19 10:23 Interval history: is feeling okay today. Getting her blood drawn. Review of Systems Cardiovascular: Cardiovascular: Reports no additional cardiovascular complaints Respiratory: Respiratory: Reports no additional respiratory complaints Gastrointestinal: Gastrointestinal: Reports no additional gastrointestinal complaints Genitourinary: Genitourinary: Reports no additional female genitourinary complaints Exam Narrative: Exam Narrative: Well developed well-nourished in no acute distress Lungs clear bilaterally Heart regular without rub Abdomen bowel sounds positive soft nontender Extremities no edema Skin no rash or subcu nodules Objective Data Vital Signs Vital Signs: Vital Signs - 24 hr 10/31/19 14:00 10/31/19 17:33 10/31/19 17:38 Temperature 36.7 C Pulse Rate 125 H 112 H Respiratory Rate 22 H Blood Pressure 127/55 L 130/70 Pulse Oximetry 92 10/31/19 20:00 10/31/19 22:00 11/01/19 06:00 Temperature 36.2 C L 36.0 C L Pulse Rate 112 H 88 80 Respiratory Rate 22 H 18 16 Blood Pressure 120/54 L 123/56 L Pulse Oximetry 92 92 91 11/01/19 08:21 Temperature Pulse Rate 118 H Respiratory Rate Blood Pressure Pulse Oximetry Intake/Output Intake/Output: Intake & Output 10/29/19 10/30/19 10/31/19 11/01/19 23:59 23:59 23:59 23:59 Intake Total 1320 1930 2680 240 Output Total 250 100 800 Balance 1320 1680 2580 -560 Meds/Results Medications: Active Medications Generic Name Dose Route Start Last Admin Trade Name Freq PRN Reason Stop Dose Admin Amlodipine Besylate 10 mg 10/30/19 09:00 Norvasc PO DAILY [facility] Bisacodyl 10 mg 10/29/19 16:53 10/30/19 16:51 Dulcolax Suppository RECTAL 10 mg DAILY PRN Administration Constipation Dexamethasone 4 mg 10/30/19 08:00 11/01/19 08:21 Dexamethasone Po PO 4 mg DAILY@0800 [facility] Administration Epoetin [place] 20,000 units 10/29/19 17:50 10/31/19 17:35
--- NOTE | 2019-11-02 17:24 | P.DS_ITS ---
DS: Diagnosis Admitting Diagnosis Admitting Diagnosis: Dehydration Discharge Diagnosis (1) Acute dehydration: Code(s): E86.0 - Dehydration Status: Acute Assessment and Plan: * Likely due to poor oral intake caused by increased pain and immobility and progression of her underlying multiple myeloma * IV fluid were continued until approximately 24 hours prior to discharge * labs day of discharge revealed BUN and creatinine has fallen back into normal range (2) SUPA (acute kidney injury): Code(s): N17.9 - Acute kidney failure, unspecified Status: Acute Assessment and Plan: * Likely due to underlying multiple myeloma and dehydration due to poor oral intake * Creatinine down to 1.1 at discharge (3) Multiple myeloma: Qualifiers: Multiple myeloma remission status: not in remission Qualified Code(s): C90.00 - Multiple myeloma not having achieved remission Code(s): C90.00 - Multiple myeloma not having achieved remission Status: Chronic Assessment and Plan: * Diagnosed in 2005 * She has done quite well with minimal intervention * At this point because of increased pain, decreased appetite, and decreased functional capacity she wishes to pursue palliative care * Met with hospice 10/29. and will proceed * placement in a shelter with [facility] hospice accomplished at [facility] (4) Anemia: Qualifiers: Anemia type: other cause Other causes of anemia: other cause, not classified Qualified Code(s): D64.89 - Other specified anemias Code(s): D64.9 - Anemia, unspecified Status: Acute Assessment and Plan: * Likely due to her underlying multiple myeloma and chronic kidney disease. * Creatinine is 6.9 10/29 and 7.3 the day of discharge 10/31 (5) Hypertension: Qualifiers: Hypertension type: essential hypertension Qualified Code(s): I10 - Essential (primary) hypertension Code(s): I10 - Essential (primary) hypertension Status: Chronic Assessment and Plan: * Held metoprolol and amlodipine initially due to hypotension. BP rebounding slightly so restarted metoprolol 10/29 and amlodipine at discharge (6) Hypercalcemia: Code(s): E83.52 - Hypercalcemia Status: Acute Assessment and Plan: * May be elevated at this point due to dehydration * And decreased to 9.6 with hydration and 9.7 10/31 at discharge (7) Right shoulder pain: Qualifiers: Chronicity: acute Qualified Code(s): M25.511 - Pain in right shoulder Code(s): M25.511 - Pain in right shoulder Status: Acute Assessment and Plan: * X-ray right shoulder fracture probable pathologic * Oxycodone 5 mg p.r.n. in hospice will address pain also * . Already had radiation therapy to that shoulder. * Due to the multiple lytic lesions secondary to the multiple myeloma she is at increased risk for recurrent fractures (8) CKD (chronic kidney disease): Qualifiers: Chronic kidney disease stage: stage 3 (moderate) Qualified Code(s): N18.3 - Chronic kidney disease, stage 3 (moderate) Code(s): N18.9 - Chronic kidney disease, unspecified Status: Acute Assessment and Plan: * Baseline creatinine was 1.4 on July 14, 2019, now acute on chronic kidney disease and creatinine down to 1.1 10/31 at discharge DS: Summary Hospital Course Hospital Course: 63-year-old hypertensive black female with multiple myeloma admitted with the dehydration and hypercalcemia with acute renal failure
--- NOTE | 2019-11-02 17:24 | PM.DS ---
DS: Diagnosis Admitting Diagnosis Admitting Diagnosis: Dehydration Discharge Diagnosis (1) Acute dehydration: Code(s): E86.0 - Dehydration Status: Acute Assessment and Plan: Likely due to poor oral intake caused by increased pain and immobility and progression of her underlying multiple myeloma IV fluid were continued until approximately 24 hours prior to discharge labs day of discharge revealed BUN and creatinine has fallen back into normal range (2) SUPA (acute kidney injury): Code(s): N17.9 - Acute kidney failure, unspecified Status: Acute Assessment and Plan: Likely due to underlying multiple myeloma and dehydration due to poor oral intake Creatinine down to 1.1 at discharge (3) Multiple myeloma: Qualifiers: Multiple myeloma remission status: not in remission Qualified Code(s): C90.00 - Multiple myeloma not having achieved remission Code(s): C90.00 - Multiple myeloma not having achieved remission Status: Chronic Assessment and Plan: Diagnosed in 2005 She has done quite well with minimal intervention At this point because of increased pain, decreased appetite, and decreased functional capacity she wishes to pursue palliative care Met with hospice 10/29. and will proceed placement in a long-term with [facility] hospice accomplished at [facility] (4) Anemia: Qualifiers: Anemia type: other cause Other causes of anemia: other cause, not classified Qualified Code(s): D64.89 - Other specified anemias Code(s): D64.9 - Anemia, unspecified Status: Acute Assessment and Plan: Likely due to her underlying multiple myeloma and chronic kidney disease. Creatinine is 6.9 10/29 and 7.3 the day of discharge 10/31 (5) Hypertension: Qualifiers: Hypertension type: essential hypertension Qualified Code(s): I10 - Essential (primary) hypertension Code(s): I10 - Essential (primary) hypertension Status: Chronic Assessment and Plan: Held metoprolol and amlodipine initially due to hypotension. BP rebounding slightly so restarted metoprolol 10/29 and amlodipine at discharge (6) Hypercalcemia: Code(s): E83.52 - Hypercalcemia Status: Acute Assessment and Plan: May be elevated at this point due to dehydration And decreased to 9.6 with hydration and 9.7 10/31 at discharge (7) Right shoulder pain: Qualifiers: Chronicity: acute Qualified Code(s): M25.511 - Pain in right shoulder Code(s): M25.511 - Pain in right shoulder Status: Acute Assessment and Plan: X-ray right shoulder fracture probable pathologic Oxycodone 5 mg p.r.n. in hospice will address pain also . Already had radiation therapy to that shoulder. Due to the multiple lytic lesions secondary to the multiple myeloma she is at increased risk for recurrent fractures (8) CKD (chronic kidney disease): Qualifiers: Chronic kidney disease stage: stage 3 (moderate) Qualified Code(s): N18.3 - Chronic kidney disease, stage 3 (moderate) Code(s): N18.9 - Chronic kidney disease, unspecified Status: Acute Assessment and Plan: Baseline creatinine was 1.4 on July 14, 2019, now acute on chronic kidney disease and creatinine down to 1.1 10/31 at discharge DS: Summary Hospital Course Hospital Course: 63-year-old hypertensive black female with multiple myeloma admitted with the dehydration and hypercalcemia with acute renal failure . With hydration and pain control she was feeling slightly better but had been suffering with her diagnosis for some time and not tolerating further treatment. She met with hospice at her request and entered into [facility] Hospice initially started at [facility] Calcium 9.7, creatinine 1.1, and hemoglobin 7.3 at discharge Time Spent with Patient Time attestation: Total time spent providing and/or coordinating discharg
== END 2019-11-01 14:43 | disposition hospice, inpatient (51) ==
LOC: ANHED 12:28 → ANH2MED 10-30 12:59
PROVIDERS: Internal Medicine; Internal Medicine Nephrology; Admitting Provider Family Medicine; Emergency Provider Emergency Medicine; PCP Emergency Medicine; Visit Provider Internal Medicine
DX: N17.9 Acute kidney failure, unspecified (principal); E86.0 Dehydration; C90.00 Multiple myeloma not having achieved remission; D64.89 Other specified anemias; I12.9 Hypertensive chronic kidney disease with stage 1 through stage 4 chronic kidney disease, or unspecified chronic kidney disease; N18.3 Chronic kidney disease, stage 3 (moderate); G62.0 Drug-induced polyneuropathy; T45.1X5S Adverse effect of antineoplastic and immunosuppressive drugs, sequela; E83.52 Hypercalcemia; M25.511 Pain in right shoulder; Z77.22 Contact with and (suspected) exposure to environmental tobacco smoke (acute) (chronic); Z79.899 Other long term (current) drug therapy; Z87.311 Personal history of (healed) other pathological fracture
CPT/HCPCS: 36415; 51701; 70450; 73030; 80053; 80069; 81001; 82274; 82607; 82728; 82746; 83540; 83550; 83735; 83970; 84443; 85025; 85046; 93005; 96361; 96374; 96375; 97165; 99285; A9270; G0378; G0379; J1100; J7030; J8540; Q4081